=== PATIENT | male | born 2000 | race Hispanic/Latino ===

== ENCOUNTER 2022-04-27 11:19 | Emergency (ER) | payer OTHER ==
[2022-04-27] MEDS ORDERED: NA CHLORIDE 0.9% 1,000 ML ONE (12:17)
[2022-04-27] MEDS ORDERED: dexAMETHasone 10 MG/ML VIAL ONE (12:17)
[2022-04-27 12:33] LABS: Hematocrit 43.1 % (39.6-49.0); Lymphocytes % 20.7 % (15.3-44.8); MCV 87.1 fL (80-100); MPV 9.2 fL (7.6-11.3); RBC Red Blood Cell Count 4.95 M/uL (4.33-5.43)
[2022-04-27 12:51] LABS: Albumin 4.2 g/dL (3.4-5.0); Bilirubin Total 0.7 mg/dL (0.2-1.0); Potassium 4.3 mmol/L (3.5-5.1); Protein, Total 8.3 g/dL (6.4-8.2)
--- NOTE | 2022-04-27 12:58 | ER ---
Nurse's Notes [facility] Name: Danyel Escobedo Age: 21 yrs Sex: Male : 2000 Arrival Date: 04/27/2022 Time: 11:20 Bed 20 Private MD: Diagnosis: Dental caries, unspecified;Other specified disorders of teeth and supporting structures-wisdom tooth eruption Presentation: 04/27 11:24 Chief complaint: Patient states: Painful lump noticed to R lower jaw area 4 days ago. ll1 No fever. Coronavirus screen: Vaccine status: Patient reports receiving the 2nd dose of the covid vaccine. Client denies travel out of the [place] in the last 14 days. At this time, the client does not indicate any symptoms associated with coronavirus-19. Ebola Screen: Patient denies travel to an Ebola-affected area in the 21 days before illness onset. Initial Sepsis Screen: Does the patient meet any 2 criteria? No. Patient's initial sepsis screen is negative. Does the patient have a suspected source of infection? No. Patient's initial sepsis screen is negative. Risk Assessment: Do you want to hurt yourself or someone else? Patient reports no desire to harm self or others. Onset of symptoms was April 24, 2022. 11:24 Method Of Arrival: Ambulatory ll1 11:24 Acuity: BRUCE 4 ll1 Triage Assessment: 11:25 General: Appears in no apparent distress. Behavior is calm, cooperative, appropriate ll1 for age. Pain: Complains of pain in R lower jaw Quality of pain is described as aching. EENT: Reports pain in right cheek and right mandible. Neuro: No deficits noted. Cardiovascular: No deficits noted. Historical: - Allergies: 11:23 No Known Allergies; ll1 - PMHx: 11:23 None; ll1 - PSHx: 11:23 facial SX x 2; hernia repair; ll1 - Immunization history:: Client reports receiving the 2nd dose of the Covid vaccine. - Social history:: Smoking status: Patient denies any tobacco usage or history of. Screenin:55 [facility] ED Fall Risk Assessment (Adult) Score/Fall Risk Level 0 - 2 = Low Risk ll1 Oriented to surroundings, Maintained a safe environment, Educated pt \T\ family on fall prevention, incl call for assistance when getting out of bed, Hourly rounding (assess needs \T\ fall precautionary measures) done. Abuse screen: Denies threats or abuse. Nutritional screening: No deficits noted. Tuberculosis screening: No symptoms or risk factors identified. Assessment: 12:45 Reassessment: No changes from previously documented assessment. Patient and/or family ll1 updated on plan of care and expected duration. Pain level reassessed. Patient is alert, oriented x 3, equal unlabored respirations, skin warm/dry/pink. 13:54 Reassessment: No changes from previously documented assessment. Patient and/or family ll1 updated on plan of care and expected duration. Pain level reassessed. Patient is alert, oriented x 3, equal unlabored respirations, skin warm/dry/pink. Vital Signs: 11:24 BP 125 / 81; Pulse 61; Resp 16; Temp 97.7(O); Pulse Ox 100% ; Weight 63.5 kg; Height 5 ll1 ft. 5 in. (165.10 cm); Pain 6/10; 13:54 BP 126 / 86; Pulse 75; Resp 18; Pulse Ox 100% ; ll1 11:24 Body Mass Index 23.30 (63.50 kg, 165.10 cm) ll1 ED Course: 11:20 Patient arrived in ED. eb 11:21 Madie Barrientos, KAUR is Primary Nurse. ll1 11:23 Arm band placed on Patient placed in an exam room, on a stretcher. ll1 11:24 Adriana Sosa FNP-C is [facility]. snw 11:24 Amy Johnson MD is Attending Physician. snw 11:24 Triage completed. ll1 12:05 Inserted saline lock: 22 gauge in left antecubital area, using aseptic technique. Blood ll1 collected. 13:54 No provider procedures requiring assistance completed. IV discontinued, intact, ll1 bleeding controlled, No redness/swelling at site. Pressure dressing applied. 13:55 Patient has correct armband on for positive identification. Bed in low position. Call ll1 light in reach. Side rails up X2. Client placed on continuous cardiac and pulse oximetry monitoring. NIBP monitoring applied. alarm security or surveillance monitor on. Administered Medications: 12:43 Drug: NS 0.9% 1000 ml Route: IV; Rate: 1 bolus; Site: left antecubital; ll1 13:53 Follow up: Response: No adverse reaction; IV Status: Completed infusion; IV Intake: ll1 1000ml 12:43 Drug: Decadron - Dexamethasone 10 mg Route: IVP; Site: left antecubital; ll1 13:05 Follow up: Response: No adverse reaction ll1 13:05 Drug: Clindamycin 600 mg Route: IVPB; Infused Over: 30 mins; Site: left antecubital; ll1 13:53 Follow up: Response: No adverse reaction; IV Status: Completed infusion; IV Intake: [id number] Medication: 13:55 VIS not applicable for this client. ll1 Intake: 13:53 IV: 1000ml; Total: 1000ml. ll1 13:53 IV: 50ml; Total: 1050ml. ll1 Outcome: 12:57 Discharge ordered by . snjosé 13:55 Discharged to Law Enforcement ll1 13:55 Condition: stable 13:55 Discharge instructions given to patient, Instructed on discharge instructions, follow up and referral plans. medication usage, Demonstrated understanding of instructions, follow-up care, medications, Prescriptions given X 2. 13:55 Patient left the ED. ll1 Signatures: Adriana Sosa, OPERATION AGENT-C OPERATION AGENT-Csnw Nia Medley Lynsay, RN RN ll1 Corrections: (The following items were deleted from the chart) 12:03 11:24 Resp 16bpm; 63.5 kg; Height 5 ft. 5 in.; BMI: 23.3; Pain 6/10; ll1 ll1
--- NOTE | 2022-04-27 12:58 | EDPHYS ---
Physician Documentation [facility] Name: Danyel Escobedo Age: 21 yrs Sex: Male : 2000 Arrival Date: 04/27/2022 Time: 11:20 Bed 20 Private MD: ED Physician Amy Johnson HPI: 04/27 12:54 This 21 yrs old Male presents to ER via Ambulatory with complaints of lymph node snw swelling. 12:54 The patient presents with wisdom tooth erupting. The problem is located in the upper snw right third molar. Onset: The symptoms/episode began/occurred acutely. Duration: The symptoms are continuous. Associated signs and symptoms: Pertinent positives: swelling, facial. Severity of symptoms: At their worst the symptoms were moderate, severe. It is unknown whether or not the patient has had similar symptoms in the past. It is unknown whether or not the patient has recently seen a physician. Historical: - Allergies: 11:23 No Known Allergies; ll1 - PMHx: 11:23 None; ll1 - PSHx: 11:23 facial SX x 2; hernia repair; ll1 - Immunization history:: Client reports receiving the 2nd dose of the Covid vaccine. - Social history:: Smoking status: Patient denies any tobacco usage or history of. ROS: 12:01 Eyes: Negative for injury, pain, redness, and discharge. snw 12:01 Cardiovascular: Negative for chest pain, palpitations, and edema, Respiratory: Negative for shortness of breath, cough, wheezing, and pleuritic chest pain, Abdomen/GI: Negative for abdominal pain, nausea, vomiting, diarrhea, and constipation, Back: Negative for injury and pain, : Negative for injury, bleeding, discharge, and swelling, MS/Extremity: Negative for injury and deformity, Skin: Negative for injury, rash, and discoloration, Neuro: Negative for headache, weakness, numbness, tingling, and seizure, Psych: Negative for depression, anxiety, suicide ideation, homicidal ideation, and hallucinations. 12:01 Constitutional: Positive for body aches, poor PO intake. 12:01 ENT: Positive for ear pain, Gum pain sore throat. 12:01 Neck: Positive for swollen nodes, tenderness. Exam: 12:01 Head/Face: Normocephalic, atraumatic. Eyes: Pupils equal round and reactive to light, snw extra-ocular motions intact. Lids and lashes normal. Conjunctiva and sclera are non-icteric and not injected. Cornea within normal limits. Periorbital areas with no swelling, redness, or edema. 12:01 Chest/axilla: Normal chest wall appearance and motion. Nontender with no deformity. No lesions are appreciated. Cardiovascular: Regular rate and rhythm with a normal S1 and S2. No gallops, murmurs, or rubs. Normal PMI, no JVD. No pulse deficits. Respiratory: Lungs have equal breath sounds bilaterally, clear to auscultation and percussion. No rales, rhonchi or wheezes noted. No increased work of breathing, no retractions or nasal flaring. Abdomen/GI: Soft, non-tender, with normal bowel sounds. No distension or tympany. No guarding or rebound. No evidence of tenderness throughout. Back: No spinal tenderness. No costovertebral tenderness. Full range of motion. Skin: Warm, dry with normal turgor. Normal color with no rashes, no lesions, and no evidence of cellulitis. MS/ Extremity: Pulses equal, no cyanosis. Neurovascular intact. Full, normal range of motion. Neuro: Awake and alert, GCS 15, oriented to person, place, time, and situation. Cranial nerves II-XII grossly intact. Motor strength 5/5 in all extremities. Sensory grossly intact. Cerebellar exam normal. Normal gait. Psych: Awake, alert, with orientation to person, place and time. Behavior, mood, and affect are within normal limits. 12:01 Constitutional: The patient appears alert, awake, uncomfortable. 12:01 ENT: TM's: are normal, Nose: is normal, Mouth: is normal, Posterior pharynx: swelling, that is mild, erythema, that is moderate, Voice: is normal. 12:01 ENT: Dental exam: pain, right wisdom tooth erupting with round elevated pad over the erupting tooth. 12:01 Neck: Lymph nodes: lymphadenopathy is appreciated, anterior cervical nodes, submandibular nodes. Vital Signs: 11:24 BP 125 / 81; Pulse 61; Resp 16; Temp 97.7(O); Pulse Ox 100% ; Weight 63.5 kg; Height 5 ll1 ft. 5 in. (165.10 cm); Pain 6/10; 13:54 BP 126 / 86; Pulse 75; Resp 18; Pulse Ox 100% ; ll1 11:24 Body Mass Index 23.30 (63.50 kg, 165.10 cm) ll1 MDM: 11:25 Patient medically screened. snw 12:58 Differential diagnosis: dental caries. Data reviewed: vital signs, nurses notes. Care snw significantly affected by the following Social Determinants of Health: incarcerated at [facility]'s unit. Counseling: I had a detailed discussion with the patient and/or guardian regarding: the historical points, exam findings, and any diagnostic results supporting the discharge/admit diagnosis, lab results, the need for outpatient follow up, for definitive care. Special discussion: I have referred the patient to see his PCP for further evaluation of high blood pressure. Based on the history and exam findings, there is no indication for further emergent testing or inpatient evaluation. I discussed with the patient/guardian the need to see a dentist for further evaluation of the symptoms. I discussed with the patient/guardian the need to see the primary care provider for further evaluation of the symptoms. 04/27 12:00 Order name: Strep snw 04/27 12:00 Order name: CBC with Diff snw 04/27 12:00 Order name: CMP snw 04/27 12:34 Order name: CBC with Automated Diff; Complete Time: 12:36 EDMS 04/27 12:48 Order name: Group A Streptococcus Rapid Sc; Complete Time: 12:53 EDMS 04/27 12:51 Order name: Comprehensive Metabolic Panel; Complete Time: 12:53 EDMS Administered Medications: 12:43 Drug: NS 0.9% 1000 ml Route: IV; Rate: 1 bolus; Site: left antecubital; ll1 13:53 Follow up: Response: No adverse reaction; IV Status: Completed infusion; IV Intake: ll1 1000ml 12:43 Drug: Decadron - Dexamethasone 10 mg Route: IVP; Site: left antecubital; ll1 13:05 Follow up: Response: No adverse reaction ll1 13:05 Drug: Clindamycin 600 mg Route: IVPB; Infused Over: 30 mins; Site: left antecubital; ll1 13:53 Follow up: Response: No adverse reaction; IV Status: Completed infusion; IV Intake: [id number] Disposition Summary: 04/27/22 12:57 Discharge Ordered Location: Home snw Condition: Stable snw Diagnosis - Dental caries, unspecified snw - Other specified disorders of teeth and supporting structures - wisdom tooth eruptionsnw Followup: snw - With: Emergency Department - When: As needed - Reason: Worsening of condition Followup: snw - With: Private Physician - When: 2 - 3 days - Reason: Recheck today's complaints, Continuance of care, Re-evaluation by your physician Discharge Instructions: - Discharge Summary Sheet snw - Dental Caries, Adult snw - Dental Pain snw - Lymphadenopathy snw Forms: - Medication Reconciliation Form snw - Thank You Letter snw - Antibiotic Education snw - Prescription Opioid Use snw Prescriptions: - Clindamycin HCl 300 mg Oral Capsule - take 1 capsule by ORAL route every 8 hours for 10 days; 40 capsule; Refills: 0, snw Product Selection Permitted - Diclofenac Sodium 75 mg Oral Tablet Sustained Release - take 1 tablet by ORAL route 2 times per day; 30 tablet; Refills: 0, Product snw Selection Permitted Signatures: Dispatcher [employer] Adriana Guradado FNP-C SUPERVISOR BENZENE REFINING-Csnw Madie Barrientos, RN RN ll1
[2022-04-27] MEDS ORDERED: CLINDAMYCIN 600MG/D5W 50 ML IV ONE (13:06)
--- NOTE | 2022-04-29 16:45 | EKG ---
Test Date: 2022-04-27 Test Time: 11:30:21 Special Effects Artist: ASHA MEASUREMENT RESULTS: Intervals: Rate: 70 CT: 118 QRSD: 88 QT: 382 QTc: 412 [place]: P: 0 CT: 118 QRS: 42 T: 4 INTERPRETIVE STATEMENTS: Normal sinus rhythm with sinus arrhythmia Normal ECG No previous ECG available for comparison Electronically Signed On 04-29-22 16:38:53 ALLOY WEIGHER by Manuel Miles
== END 2022-04-27 13:55 | disposition home or self-care (01) ==
LOC: ER 11:19
DX: K02.9 Dental caries, unspecified (principal); K00.6 Disturbances in tooth eruption
CPT/HCPCS: 96365; 93005; 87070; 85025; 36415; 87081; 80053; 96375; 99284; J1100; J7030